=== PATIENT | female | born 1965 | race Caucasian/White ===

== ENCOUNTER 2017-05-26 08:38 | Outpatient (CLI) | payer OTHER ==
[~2017-05-26 08:38] MED LIST: Iopamidol 370 76% 100 ML VIAL ONE
== END 2017-05-26 08:39 | disposition home or self-care (01) ==
LOC: BICCT 08:38
PROVIDERS: ATTEND Internal Medicine Gastroenterology
DX: C7A.010 Malignant carcinoid tumor of the duodenum (principal); K76.89 Other specified diseases of liver; N28.1 Cyst of kidney, acquired; R19.09 Other intra-abdominal and pelvic swelling, mass and lump
CPT/HCPCS: 74177

== ENCOUNTER 2017-06-05 07:50 | Outpatient (CLI) | payer OTHER ==
--- NOTE | 2017-06-05 11:43 | MRI ---
MRI OF ABDOMEN WITHOUT AND WITH CONTRAST: Date: 06/05/17 COMPARISON: None. HISTORY: Carcinoid tumor of the duodenum. Gastroesophageal reflux disease with esophagitis. TECHNIQUE: Multiplanar, multisequence MR images were obtained of the abdomen without and with IV contrast. FINDINGS: There are well circumscribed, nonenhancing foci of high T2 signal in both kidneys measuring up to 1.4 cm in size, which represents simple cysts. The liver, gallbladder, adrenal glands, and pancreas are unremarkable. The spleen is not seen and may have been removed. No abdominal adenopathy is seen. No free fluid is seen in the abdomen. The visualized inferior thorax and osseous structures are unremarkable. IMPRESSION: 1. Bilateral renal cysts. 2. No hepatic abnormality identified. POS: OFF
[2017-06-05] MEDS ORDERED: Gadobenate Dimeglumine 529 MG/1 ML (20ML VIAL) ONE (16:14)
== END 2017-06-05 07:51 | disposition home or self-care (01) ==
LOC: MRI 07:50
PROVIDERS: ATTEND Internal Medicine Gastroenterology
DX: C7A.010 Malignant carcinoid tumor of the duodenum (principal); K21.0 Gastro-esophageal reflux disease with esophagitis; N94.89 Other specified conditions associated with female genital organs and menstrual cycle; F45.8 Other somatoform disorders; N28.1 Cyst of kidney, acquired; R93.2 Abnormal findings on diagnostic imaging of liver and biliary tract
CPT/HCPCS: 74183; A9579

== ENCOUNTER 2017-06-22 11:51 | Outpatient (CLI) | payer OTHER | END 2017-06-22 11:52 | disposition home or self-care (01) | LOC: BICRAD 11:51 | PROVIDERS: ATTEND Family Medicine | DX: M79.642 Pain in left hand (principal); S62.307A Unspecified fracture of fifth metacarpal bone, left hand, initial encounter for closed fracture ==

== ENCOUNTER 2017-09-11 12:09 | Outpatient (CLI) | payer OTHER | END 2017-09-11 12:10 | disposition home or self-care (01) | LOC: BICRAD 12:09 | PROVIDERS: ATTEND Family Medicine | DX: M25.532 Pain in left wrist (principal) ==

== ENCOUNTER 2018-10-26 07:44 | Outpatient (CLI) | payer BC ==
[2018-10-26] MEDS ORDERED: Gadobenate Dimeglumine 529 MG/1 ML (20ML VIAL) ONE (09:00)
--- NOTE | 2018-10-26 10:10 | MRI ---
MRI ABDOMEN WITH AND WITHOUT IV CONTRAST: INDICATIONS: History of adenomatous polyp and carcinoid tumor removal. COMPARISON: CT abdomen and pelvis dated 05/26/2017. MRI abdomen dated 06/05/2017. CONTRAST: MultiHance 18 mL. FINDINGS: There is susceptibility artifact seen posterior to the fundus of the stomach, related to surgical cli ps within this region. No suspicious enhancing lesion is seen involving the liver, the gallbladder, or the visualized aspects of the duodenum. There are bilateral renal cysts, the largest measuring 1. 3 cm, within the superior pole, which is stable. No lymphadenopathy is grossly evident. There is salmeron sceptibility artifact within the left aspect of the retroperitoneum, due to surgical clips. No free fluid is identified. No bone marrow signal abnormality is noted. IMPRESSION: 1. No evidence to suggest metastatic disease within the abdomen. 2. Bilateral renal cysts. POS: OFF
== END 2018-10-26 07:45 | disposition home or self-care (01) ==
LOC: SCSMRI 07:44
PROVIDERS: ATTEND Internal Medicine Gastroenterology
DX: K31.7 Polyp of stomach and duodenum (principal); K59.09 Other constipation; F45.8 Other somatoform disorders; N28.1 Cyst of kidney, acquired
CPT/HCPCS: 74183; A9577

== ENCOUNTER → 2019-11-01 | Day surgery (SDC) | payer BC ==
[2019-10-28 11:30] VITALS: BMI 33.4
[~2019-11-01] MED LIST changes: +Fentanyl 100 MCG/2 ML VIAL ONE; +Heparin 10,000 UNITS/ 10 ML VIAL ONE; +Iopamidol 370 76% 50 ML VIAL FS ONE; +Lidocaine 1% (PF) 30 ML VIAL ONE; +Midazolam HCl 2 mg/2 ml Vial ONE; +Protamine Sulfate 50 MG/5 ML VIAL ONE
[2019-11-01 08:26] LABS: #Basophils 0.2 thou/uL (0.0-0.2); #Eosinphils 0.4 thou/uL (0.0-0.7); #Lymphocytes 2.1 thou/uL (1.20-3.40); #Monocytes 1.1 thou/uL (0.11-0.59); %Basophils 2.5 % (0.0-1.0); %Eosinophils 4.3 % (0.0-10.0); %Lymphocytes 24.2 % (21.0-51.0); %Monocytes 12.4 % (0.0-10.0); %Neutrophils 56.7 % (42.0-75.0); Hemoglobin 12.7 g/dL (12.0-16.0); Mean Corpuscular HGB CONC 31.4 g/dL (32.0-36.0); Mean Corpuscular Hemoglobin 27.6 pg (27.0-31.0); Mean Corpuscular Volume 87.8 fL (78.0-98.0); Platelet Count 330 thou/uL (130-400); RBC Distribution Width 15.5 % (11.5-14.5); Red Blood Cell (RBC) Count 4.59 mill/uL (4.20-5.40); White Blood Cell (WBC) Count 8.8 thou/uL (4.8-10.8)
--- NOTE | 2019-11-01 14:07 | CT ---
CT CHEST WITHOUT CONTRAST: 11/01/19 HISTORY: Status post diagnostic heart cath. Patient has leaking mitral valve. Evaluate for TAVR or metal stent . FINDINGS: Absence of IV contrast reduces the sensitivity of the exam, particularly for evaluation of mediastina l, hilar and vascular structures. There are vascular calcifications without evidence of aneurysmal dilatation of the thoracic aorta. Th ere is calcification in the aortic an mitral valves. The coronal oblique measurements of the thoracic aorta are as follows: At aortic annulus: 19 mm At aortic sinuses of Valsalva: 26 mm At sinotubular junction: 23 mm Mid ascending aorta: 25 mm High ascending aorta: 24 mm The AP measurements on the axial images at the level of the main pulmonary arterial trunk are 28 mm f or the ascending aorta and 23 mm for the descending thoracic aorta. No pleural or pericardial effusions are seen. No pneumothoraces, focal areas of consolidation or mass es are noted. There is a 6 mm nodule in the left upper lobe. A 3 mm peripheral nodule is also seen in the left upper lobe. Upper abdominal tomograms demonstrate postop changes in the left upper quadrant. There is contrast in the pelvicalyceal systems and ureters from earlier diagnostic cath today. There are mild degenerative changes in the spine. IMPRESSION: 1. Thoracic aortic measurements are as above. 2. Indeterminate lung nodules. A follow-up CT scan of the chest is recommended in [address] T [address]. POS: ADORE
--- NOTE | 2019-11-01 19:29 | CON ---
DATE OF CONSULTATION: HISTORY OF PRESENT ILLNESS: A 54-year-old lady with worsening dyspnea on exertion, who had a syncopal episode after getting dizzy while visiting in [facility]. Most recent cardiac echo by Dr. Godinez last month showed a normal ejection fraction, moderate aortic regurgitation, severe aortic valve stenosis, severe mitral valve regurgitation, and moderate to severe tricuspid regurgitation. LV outflow tract diameter measured 18 mm and the mean and peak gradients of 31 and 58 mmHg. Cardiac cath today revealed some mild ostial right coronary artery narrowing, normal appearing left ventricle with elevated PA pressures of about 60 systolic. Aortic valve area calculated out about 0.65 compared with echo area of 0.55. PAST MEDICAL HISTORY: Significant for radiation therapy for Hodgkin disease in 1984. She has also had bilateral mastectomy for cancer with no radiation treatments. She has also had a carcinoid tumor removed endoscopically from her duodenum on 2 occasions in and with the first one being a partial resection and the second one suspected to be recurrent. Her cardiovascular risk factors include elevated cholesterol level and the previously noted radiation therapy. 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 MEDICATIONS: Include; 1. Venlafaxine. 2. Aspirin. 3. Celebrex. 4. Synthroid. 5. Nexium. 6. Rosuvastatin 40. 7. Metoprolol succinate 50. ALLERGIES: NONE. PHYSICAL EXAMINATION: GENERAL: Alert, cooperative lady, in no distress. VITAL SIGNS: Recorded weight of 200 pounds. Height is 5 feet and 5 inches. NEURO: Affect somewhat flat. NECK: Unremarkable. No radiated bruits. LUNGS: Clear to auscultation anteriorly. CARDIAC: High-pitched systolic murmur across the precordium. ABDOMEN: Soft, nontender, with a long midline incision related to previous splenectomy. EXTREMITIES: No peripheral edema with intact posterior tibial pulses. DIAGNOSTIC STUDIES: CT scan of the chest shows stippled calcification of the anterior and right lateral aspect of the ascending aorta up to the innominate artery with significant calcification of the left main, right coronary ostium, and aortic valve leaflets and mitral anulus. Additionally, the patient's aortic valve diameter at the anulus appears to be about 19 mm. At this time, the patient probably needs a SCOT to further evaluate the extent of her multivalve disease. She may need an aortic root replacement to deal with her ascending aortic calcification in conjunction with the small anulus. Whether her mitral or tricuspid valve needs attention, will depend on further workup. At this time, I feel that she would probably be best treated at the [facility] rather than pursuing this further locally. Job ID: [id number]
== END ==
LOC: EDBD → CCL 05:58 → MERGE 10:15
PROVIDERS: ATTEND Internal Medicine Cardiovascular Disease
DX: I25.10 Atherosclerotic heart disease of native coronary artery without angina pectoris (principal); D3A.00 Benign carcinoid tumor of unspecified site; E03.9 Hypothyroidism, unspecified; E78.5 Hyperlipidemia, unspecified; I34.0 Nonrheumatic mitral (valve) insufficiency; I35.0 Nonrheumatic aortic (valve) stenosis; E87.5 Hyperkalemia; R91.1 Solitary pulmonary nodule; Z79.82 Long term (current) use of aspirin; Z79.899 Other long term (current) drug therapy; Z85.3 Personal history of malignant neoplasm of breast; Z85.71 Personal history of Hodgkin lymphoma
CPT/HCPCS: 71250; 85025; 85347; 93460; 99152; 99153; J1644; J2001; J2250; J2720; J3010; Q9967

== ENCOUNTER 2021-03-08 10:28 | Outpatient (CLI) | payer OTHER | END 2021-03-08 10:29 | disposition home or self-care (01) | LOC: BICULT 10:28 | PROVIDERS: ATTEND Surgery | DX: R10.13 Epigastric pain (principal) | CPT/HCPCS: 76705 ==

== ENCOUNTER 2021-04-05 05:49 | Day surgery (SDC) | payer OTHER ==
[2021-04-02 13:02] VITALS: BMI 33.3
[2021-04-05] MEDS ORDERED: Bupivacaine 0.25% HCL 30 ML VIAL ONE (06:44)
[2021-04-05] MEDS ORDERED: Lidocaine 2% w/Epinephrine 1:200K 20 ML VIAL ONE (06:44)
[2021-04-05] MEDS ORDERED: Fentanyl 250 MCG/5 ML VIAL ONE (07:30)
[2021-04-05] MEDS ORDERED: Dexmedetomidine 200 MCG/2 ML VIAL ONE (07:30)
[2021-04-05] MEDS ORDERED: ceFAZolin 2 GM/DEX 5% 100 ML BAG ONE (07:49)
[2021-04-05] MEDS ORDERED: Rocuronium Bromide 10 MG/ML (10ML VIAL) ONE (08:02)
[2021-04-05] MEDS ORDERED: Dexamethasone 20 MG/5 ML VIAL ONE (08:02)
[2021-04-05] MEDS ORDERED: ePHEDrine 50 MG/ML VIAL ONE (08:02)
[2021-04-05] MEDS ORDERED: PROPOFOL 200 MG/20 ML VIAL ONE (08:02)
[2021-04-05] MEDS ORDERED: GLYCOPYRROLATE/PF 0.2 MG/ML VIAL ONE (08:02)
[2021-04-05] MEDS ORDERED: Lidocaine 1% PF 5 ML VIAL ONE (08:02)
[2021-04-05] MEDS ORDERED: Ondansetron PF 4 MG/2 ML Vial ONE (08:02)
[2021-04-05] MEDS ORDERED: SUGAMMADEX SODIUM 200 MG/2 ML VIAL ONE (08:41)
[2021-04-05] MEDS ORDERED: Promethazine HCl 25 MG/ML VIAL ONE (08:55)
[2021-04-05] MEDS ORDERED: HYDROcodone/Acetaminophen 5/325 mg Tablet ONE (10:50)
== END 2021-04-05 11:15 | disposition home or self-care (01) ==
LOC: SDC 05:49
PROVIDERS: ATTEND Surgery
PROC: 0WUF0JZ Supplement Abdominal Wall with Synthetic Substitute, Open Approach (ICD-10-PCS; principal; 2021-04-05)
DX: K43.2 Incisional hernia without obstruction or gangrene (principal); I10 Essential (primary) hypertension; E03.9 Hypothyroidism, unspecified; E78.00 Pure hypercholesterolemia, unspecified; E78.5 Hyperlipidemia, unspecified; Z79.82 Long term (current) use of aspirin; Z79.890 Hormone replacement therapy; Z79.899 Other long term (current) drug therapy; Z95.2 Presence of prosthetic heart valve
CPT/HCPCS: C1889; J2550; J3010; S0020

== ENCOUNTER 2023-01-09 17:19 | Emergency (ER) | payer BC ==
[2023-01-09] MEDS ORDERED: Morphine 4 MG/ML VIAL ONE (17:52)
[2023-01-09] MEDS ORDERED: Ondansetron PF 4 MG/2 ML Vial ONE (17:52)
[2023-01-09] MEDS ORDERED: Aspirin Chewable 81 MG TAB ONE (17:52)
[2023-01-09 18:08] LABS: #Basophils 0.1 thou/uL (0.0-0.2); #Eosinphils 0.5 thou/uL (0.0-0.7); #Monocytes 1.4 thou/uL (0.11-0.59); #Neutrophils 6.4 thou/uL (1.40-6.50); %Basophils 0.4 % (0.0-1.0); %Eosinophils 4.2 % (0.0-10.0); %Lymphocytes 30.9 % (21.0-51.0); %Monocytes 11.5 % (0.0-10.0); %Neutrophils 52.9 % (42.0-75.0); Hematocrit 39.6 % (36.0-47.0); Hemoglobin 12.8 g/dL (12.0-16.0); Mean Corpuscular HGB CONC 32.3 g/dL (32.0-36.0); Mean Corpuscular Hemoglobin 28.3 pg (27.0-31.0); Mean Corpuscular Volume 87.4 fl (78.0-98.0); Platelet Count 344 10x3/uL (130-400); RBC Distribution Width 15.7 % (11.5-14.5); Red Blood Cell (RBC) Count 4.53 mill/uL (4.20-5.40)
[2023-01-09 18:30] LABS: ALT (SGPT) 21 U/L (8-55); AST (SGOT) 26 U/L (5-34); Albumin 4.2 g/dL (3.5-5.0); Alkaline Phosphatase 94 U/L (40-110); Anion Gap 16 mmol/L (10-20); BUN (Urea Nitrogen) 11 mg/dL (9.8-20.1); Bilirubin, Total 0.6 mg/dL (0.2-1.2); Calc. Creatinine Clearance 0 mL/min (70-130); Calcium 9.7 mg/dL (7.8-10.44); Carbon Dioxide 27 mmol/L (22-29); Chloride 101 mmol/L (98-107); Estimated GFR 78; Globulin 3.3 g/dL (2.4-3.5); Glucose 140 mg/dL (70-105); Lipase 24 U/L (8-78); Potassium 3.8 mmol/L (3.5-5.1); Protein, Total 7.5 g/dL (6.0-8.3); Sodium 140 mmol/L (136-145)
[2023-01-09 18:35] LABS: Troponin I Less than 0.010 ng/mL (< 0.028)
[2023-01-09 21:32] LABS: Troponin I Less than 0.010 ng/mL (< 0.028)
== END 2023-01-09 21:54 | disposition home or self-care (01) ==
LOC: ERS 17:19
DX: R07.9 Chest pain, unspecified (principal); I10 Essential (primary) hypertension; E78.5 Hyperlipidemia, unspecified; E03.9 Hypothyroidism, unspecified; Z79.899 Other long term (current) drug therapy
CPT/HCPCS: 71045; 80053; 83690; 84484; 85025; 85379; 93005; 96374; 96375; J2270; J2405

== ENCOUNTER 2023-09-09 03:37 | Inpatient (IN) | payer BC ==
[2023-09-09 04:15] LABS: #Basophils 0.06 10x3/uL (0.0-0.2); %Basophils 0.4 % (0.0-1.0); %Eosinophils 1.9 % (0.0-10.0); %Lymphocytes 15.1 % (21.0-51.0); %Monocytes 6.3 % (0.0-10.0); Hematocrit 39.5 % (36.0-47.0); Hemoglobin 12.6 g/dL (12.0-16.0); Mean Corpuscular HGB CONC 31.9 g/dL (32.0-36.0); Mean Corpuscular Hemoglobin 26.6 pg (27.0-31.0); Mean Corpuscular Volume 83.3 fL (78.0-98.0); Mean Platelet Volume 10.4 fL (7.4-10.4); Platelet Count 389 10x3/uL (130-400); RBC Distribution Width 16.6 % (11.5-14.5); Red Blood Cell (RBC) Count 4.74 mill/uL (4.20-5.40)
[2023-09-09] MEDS ORDERED: Metoclopramide HCl 10 MG (2 mL) VIAL ONE (04:18)
[2023-09-09] MEDS ORDERED: diphenhydrAMINE 50 MG/ML VIAL ONE (04:27)
[2023-09-09 04:44] LABS: ALT (SGPT) 26 U/L (8-55); AST (SGOT) 25 U/L (5-34); Albumin 3.5 g/dL (3.5-5.0); Alkaline Phosphatase 85 U/L (40-110); Anion Gap 13 mmol/L (10-20); BUN (Urea Nitrogen) 20 mg/dL (9.8-20.1); Bilirubin, Total 0.5 mg/dL (0.2-1.2); Calc. Creatinine Clearance 0 mL/min (70-130); Calcium 9.5 mg/dL (7.8-10.44); Carbon Dioxide 26 mmol/L (22-29); Chloride 105 mmol/L (98-107); Estimated GFR 83; Globulin 3.8 g/dL (2.4-3.5); Glucose 172 mg/dL (70-105); Lipase 195 U/L (8-78); Protein, Total 7.3 g/dL (6.0-8.3); Sodium 140 mmol/L (136-145)
[2023-09-09 04:47] LABS: Troponin I Less than 0.010 ng/mL (< 0.028)
[2023-09-09] MEDS ORDERED: Pantoprazole 40 MG VIAL ONE (05:14)
[2023-09-09 06:37] LABS: #Basophils 0.04 10x3/uL (0.0-0.2); %Basophils 0.3 % (0.0-1.0); %Eosinophils 1.2 % (0.0-10.0); %Monocytes 5.2 % (0.0-10.0); %Neutrophils 79.9 % (42.0-75.0); Hematocrit 33.2 % (36.0-47.0); Hemoglobin 10.4 g/dL (12.0-16.0); Mean Corpuscular HGB CONC 31.3 g/dL (32.0-36.0); Mean Corpuscular Hemoglobin 27.1 pg (27.0-31.0); Mean Corpuscular Volume 86.5 fL (78.0-98.0); Mean Platelet Volume 10.4 fL (7.4-10.4); Platelet Count 328 10x3/uL (130-400); RBC Distribution Width 16.7 % (11.5-14.5); Red Blood Cell (RBC) Count 3.84 mill/uL (4.20-5.40)
[2023-09-09] MEDS ORDERED: Calcium Carbonate 500 MG ChewTAB PO PRN (09:26)
[2023-09-09] MEDS ORDERED: Acetaminophen 325 MG TAB PO PRN (09:26)
[2023-09-09] MEDS ORDERED: Acetaminophen 650 MG Suppository PR PRN (09:26)
[2023-09-09] MEDS ORDERED: Pantoprazole 80 MG in Sodium Chloride 0.9% 100 ML IVPB SCH (09:30)
[2023-09-09] MEDS ORDERED: Lactated Ringer's 1,000 ML IV SCH (09:30)
[2023-09-09 10:27] VITALS: BMI 31.6
[2023-09-09] MEDS ORDERED: PROPOFOL 20 ML ONE (10:46)
[2023-09-09] MEDS ORDERED: SUCCINYLCHOLINE/SOD CL,ISO/PF 200 MG/10 ML SYRINGE FS ONE (10:46)
[2023-09-09] MEDS ORDERED: fentaNYL 50 mcg/mL 1 mL Vial ONE (10:46)
[2023-09-09] MEDS ORDERED: Lidocaine 2% PF 5 ML VIAL ONE (10:46)
[2023-09-09] MEDS ORDERED: Iopamidol-370 76% 500 ML MDV (1 ML CHARGE) ONE (10:47)
[2023-09-09] MEDS ORDERED: EPINEPHrine 1 MG/10 ML Abboject SYRINGE ONE (11:14)
[2023-09-09 11:17] LABS: Hematocrit 32.4 % (36.0-47.0); Hemoglobin 10.4 g/dL (12.0-16.0)
[2023-09-09] MEDS ORDERED: Ondansetron PF 4 MG/2 ML Vial ONE (11:23)
[2023-09-09] MEDS ORDERED: Promethazine HCl 25 MG/ML VIAL IM PRN (11:31)
[2023-09-09] MEDS ORDERED: Ondansetron HCl/PF 4 MG/2 ML Vial IVP PRN (11:31)
[2023-09-09 16:05] LABS: Hematocrit 33.4 % (36.0-47.0); Hemoglobin 10.8 g/dL (12.0-16.0)
[2023-09-09 18:00] LABS: Hematocrit 30.8 % (36.0-47.0); Hemoglobin 10.1 g/dL (12.0-16.0)
[2023-09-09] MEDS: Sodium Chloride 0.9% 500 ML IV SCH (18:42)
[2023-09-09] MEDS: Sodium Chloride 0.9% 1,000 ML IV SCH ×2 (18:43→18:52)
[2023-09-09] MEDS: Sodium Ferric Gluconate 250 MG in Sodium Chloride 0.9% 250 ML 250 ML IVPB SCH (18:43)
[2023-09-09] MEDS: Pantoprazole 80 MG, Admixture Fee 1 EACH in Sodium Chloride 0.9% 100 ML IVPB SCH (20:02)
[2023-09-09] MEDS: Cyanocobalamin (Vitamin B-12) 1,000 MCG TAB PO SCH (21:57)
[2023-09-09 23:03] LABS: Hemoglobin 10.1 g/dL (12.0-16.0)
[2023-09-10 04:19] LABS: #Basophils 0.04 10x3/uL (0.0-0.2); %Basophils 0.3 % (0.0-1.0); %Eosinophils 0.9 % (0.0-10.0); %Lymphocytes 21.6 % (21.0-51.0); %Monocytes 5.9 % (0.0-10.0); %Neutrophils 70.9 % (42.0-75.0); Hematocrit 26.8 % (36.0-47.0); Hemoglobin 8.7 g/dL (12.0-16.0); Mean Corpuscular HGB CONC 32.5 g/dL (32.0-36.0); Mean Corpuscular Hemoglobin 27.7 pg (27.0-31.0); Mean Corpuscular Volume 85.4 fL (78.0-98.0); Mean Platelet Volume 10.4 fL (7.4-10.4); Platelet Count 283 10x3/uL (130-400); RBC Distribution Width 16.6 % (11.5-14.5); Red Blood Cell (RBC) Count 3.14 mill/uL (4.20-5.40)
[2023-09-10] MEDS: Levothyroxine Sodium 100 MCG TAB PO SCH (04:33)
[2023-09-10 04:38] LABS: ALT (SGPT) 13 U/L (8-55); AST (SGOT) 15 U/L (5-34); Albumin 2.6 g/dL (3.5-5.0); Alkaline Phosphatase 58 U/L (40-110); Anion Gap 10 mmol/L (10-20); BUN (Urea Nitrogen) 14 mg/dL (9.8-20.1); Bilirubin, Total 0.7 mg/dL (0.2-1.2); Calc. Creatinine Clearance 123 mL/min (70-130); Calcium 8.2 mg/dL (7.8-10.44); Carbon Dioxide 23 mmol/L (22-29); Chloride 108 mmol/L (98-107); Estimated GFR 100; Globulin 2.4 g/dL (2.4-3.5); Glucose 101 mg/dL (70-105); Lipase 14 U/L (8-78); Potassium 3.9 mmol/L (3.5-5.1); Sodium 137 mmol/L (136-145)
[2023-09-11 04:41] LABS: #Basophils 0.05 10x3/uL (0.0-0.2); %Basophils 0.5 % (0.0-1.0); %Eosinophils 7.6 % (0.0-10.0); %Lymphocytes 31.7 % (21.0-51.0); %Monocytes 10.1 % (0.0-10.0); %Neutrophils 49.7 % (42.0-75.0); Hematocrit 24.8 % (36.0-47.0); Hemoglobin 7.8 g/dL (12.0-16.0); Mean Corpuscular HGB CONC 31.5 g/dL (32.0-36.0); Mean Corpuscular Hemoglobin 27.7 pg (27.0-31.0); Mean Corpuscular Volume 87.9 fL (78.0-98.0); Mean Platelet Volume 10.7 fL (7.4-10.4); Platelet Count 274 10x3/uL (130-400); Red Blood Cell (RBC) Count 2.82 mill/uL (4.20-5.40)
[2023-09-11 05:04] LABS: Anion Gap 14 mmol/L (10-20); BUN (Urea Nitrogen) 5 mg/dL (9.8-20.1); Calc. Creatinine Clearance 148 mL/min (70-130); Calcium 8.4 mg/dL (7.8-10.44); Carbon Dioxide 19 mmol/L (22-29); Chloride 110 mmol/L (98-107); Estimated GFR 105; Glucose 82 mg/dL (70-105); Potassium 3.7 mmol/L (3.5-5.1); Sodium 139 mmol/L (136-145)
[2023-09-11] MEDS ORDERED: Lidocaine 1% PF 5 ML VIAL ONE (12:15)
[2023-09-11] MEDS ORDERED: PROPOFOL 20 ML ONE ×5 (12:15→14:30)
[2023-09-11] MEDS ORDERED: Dexamethasone 4 mg/ml Vial ONE (12:17)
[2023-09-11] MEDS ORDERED: Ondansetron PF 4 MG/2 ML Vial ONE (12:17)
[2023-09-11] MEDS ORDERED: SUCCINYLCHOLINE/SOD CL,ISO/PF 200 MG/10 ML SYRINGE FS ONE (12:17)
[2023-09-11] MEDS: Pantoprazole 40 MG VIAL IVP SCH (21:53)
[2023-09-12 04:27] LABS: #Basophils Less than 0.03 10x3/uL (0.0-0.2); #Eosinphils Less than 0.03 10x3/uL (0.0-0.7); %Basophils 0.1 % (0.0-1.0); %Lymphocytes 16.6 % (21.0-51.0); %Monocytes 5.7 % (0.0-10.0); %Neutrophils 76.9 % (42.0-75.0); Hematocrit 24.8 % (36.0-47.0); Mean Corpuscular HGB CONC 32.3 g/dL (32.0-36.0); Mean Corpuscular Hemoglobin 27.7 pg (27.0-31.0); Mean Corpuscular Volume 85.8 fL (78.0-98.0); Mean Platelet Volume 10.4 fL (7.4-10.4); Platelet Count 328 10x3/uL (130-400); RBC Distribution Width 16.9 % (11.5-14.5); Red Blood Cell (RBC) Count 2.89 mill/uL (4.20-5.40)
[2023-09-12 04:49] LABS: Anion Gap 11 mmol/L (10-20); BUN (Urea Nitrogen) 4 mg/dL (9.8-20.1); Calc. Creatinine Clearance 140 mL/min (70-130); Calcium 8.6 mg/dL (7.8-10.44); Carbon Dioxide 22 mmol/L (22-29); Chloride 106 mmol/L (98-107); Estimated GFR 104; Glucose 118 mg/dL (70-105); Potassium 3.6 mmol/L (3.5-5.1); Sodium 135 mmol/L (136-145)
[2023-09-13 04:56] LABS: #Basophils 0.04 10x3/uL (0.0-0.2); %Basophils 0.2 % (0.0-1.0); %Eosinophils 0.9 % (0.0-10.0); %Lymphocytes 23.3 % (21.0-51.0); %Monocytes 8.9 % (0.0-10.0); %Neutrophils 66.1 % (42.0-75.0); Hemoglobin 7.6 g/dL (12.0-16.0); Mean Corpuscular HGB CONC 31.7 g/dL (32.0-36.0); Mean Corpuscular Hemoglobin 27.7 pg (27.0-31.0); Mean Corpuscular Volume 87.6 fL (78.0-98.0); Mean Platelet Volume 10.5 fL (7.4-10.4); Platelet Count 339 10x3/uL (130-400); RBC Distribution Width 17.4 % (11.5-14.5); Red Blood Cell (RBC) Count 2.74 mill/uL (4.20-5.40)
[2023-09-13 05:06] LABS: Anion Gap 12 mmol/L (10-20); BUN (Urea Nitrogen) 4 mg/dL (9.8-20.1); Calc. Creatinine Clearance 140 mL/min (70-130); Calcium 8.4 mg/dL (7.8-10.44); Carbon Dioxide 22 mmol/L (22-29); Chloride 111 mmol/L (98-107); Estimated GFR 104; Glucose 77 mg/dL (70-105); Potassium 3.1 mmol/L (3.5-5.1); Sodium 142 mmol/L (136-145)
[2023-09-13] MEDS: Potassium Chloride 20 MEQ TAB PO SCH (08:58)
[2023-09-13 11:30] VITALS: BP 123/58; TEMP 97.9
== END 2023-09-13 14:14 | disposition home or self-care (01) | DRG 378 ==
LOC: ERS 03:37 → ERHOLD 07:40 → 2NO 15:48
PROVIDERS: ADMIT Internal Medicine; ATTEND Internal Medicine
PROC: 0W3P8ZZ Control Bleeding in Gastrointestinal Tract, Via Natural or Artificial Opening Endoscopic (ICD-10-PCS; principal; 2023-09-09)
PROC: 3E033XZ Introduction of Vasopressor into Peripheral Vein, Percutaneous Approach (ICD-10-PCS; 2023-09-09)
PROC: 0W3P8ZZ Control Bleeding in Gastrointestinal Tract, Via Natural or Artificial Opening Endoscopic (ICD-10-PCS; 2023-09-11)
DX: K26.4 Chronic or unspecified duodenal ulcer with hemorrhage (principal); D62 Acute posthemorrhagic anemia; K31.7 Polyp of stomach and duodenum; E03.9 Hypothyroidism, unspecified; E11.22 Type 2 diabetes mellitus with diabetic chronic kidney disease; N18.30 Chronic kidney disease, stage 3 unspecified; I12.9 Hypertensive chronic kidney disease with stage 1 through stage 4 chronic kidney disease, or unspecified chronic kidney disease; E78.5 Hyperlipidemia, unspecified; D3A.8 Other benign neuroendocrine tumors; K44.9 Diaphragmatic hernia without obstruction or gangrene; I25.10 Atherosclerotic heart disease of native coronary artery without angina pectoris; Z79.82 Long term (current) use of aspirin; Z79.899 Other long term (current) drug therapy; Z98.890 Other specified postprocedural states
CPT/HCPCS: 36415; 71045; 71260; 74177; 80048; 80053; 83690; 83735; 84484; 85025; 86850; 86900; 86901; 93005; 96374; 96375; C1889; J0171; J1100; J1200; J2001; J2405; J2470; J2704; J2765; J2916; J3010; J7030; J7050; Q9967